=== PATIENT | male | born 1945 | race Caucasian/White ===

== ENCOUNTER → 2016-05-24 | Outpatient (CLI) | payer MEDICARE, OTHER ==
[2016-05-24 12:35] LABS: ALBUMIN 3.7 g/dL (3.4-5.0); ANION GAP 15.3 MEQ/L (3-15); PHOSPHORUS 4.5 mg/dL (2.4-4.9)
== END ==
LOC: LAB 12:04
PROVIDERS: ATTEND Internal Medicine
DX: E87.5 Hyperkalemia (principal); I10 Essential (primary) hypertension
CPT/HCPCS: 36415; 80069

== ENCOUNTER → 2016-08-20 | Outpatient (CLI) | payer MEDICARE, OTHER ==
[~2016-08-20] MED LIST: ATN25T PO; FLC1T PO; LISI1TAB10 PO; SILD100T PO
[2016-08-20 08:36] LABS: ANION GAP 15.2 MEQ/L (3-15)
== END ==
LOC: LAB 08:00
PROVIDERS: ATTEND Internal Medicine
DX: I10 Essential (primary) hypertension (principal); E78.2 Mixed hyperlipidemia
CPT/HCPCS: 36415; 80048; 80061